=== PATIENT | female | born 1985 | race Caucasian/White ===

== ENCOUNTER 2023-10-10 10:36 | Emergency (ER) | payer OTHER ==
[~2023-10-10] VITALS: Ht 180.3 cm; Wt 63.0 kg
[2023-10-10] MEDS ORDERED: ZOLOFT50 MG PO (10:48)
[2023-10-10] MEDS ORDERED: DIPHENHYDRAM50 M2 PO (12:44)
[2023-10-10] MEDS ORDERED: CLINDAMYCIN300 M1 PO (12:44)
[2023-10-10 12:52] VITALS: BP 99/63
== END 2023-10-10 12:53 | disposition home or self-care (01) ==
LOC: ED 10:36
DX: L08.9 Local infection of the skin and subcutaneous tissue, unspecified (principal); B95.62 Methicillin resistant Staphylococcus aureus infection as the cause of diseases classified elsewhere